=== PATIENT | male | born 1935 | race Caucasian/White ===

== ENCOUNTER 2021-01-21 14:59 | Inpatient (IN) | payer MEDICARE, MEDICAID ==
[~2021-01-21] VITALS: Ht 167.6 cm; Wt 48.1 kg
[2021-01-21] MEDS ORDERED: DILTIAZEM HCL 5MG/ML 5ML VIAL IV ONE (15:15)
[2021-01-21 15:36] LABS: BASOPHILS % 0.4 % (0.0-2.0); EOSINOPHILS % 0.1 % (0.0-5.0); HEMATOCRIT. 44.4 % (42.0-52.0); HEMOGLOBIN. 14.5 g/dL (14.0-18.0); MEAN CORPUSCULAR VOLUME 91.6 fL (80.0-94.0); MEAN PLATELET VOLUME 9.5 fl (7.4-10.4); MONOCYTES % 9.2 % (2.0-8.0); NEUTROPHILS % 78.3 % (40.0-76.0); PLATELET 234 x1000/uL (130-400); RED BLOOD CELL COUNT 4.85 mill/uL (4.7-6.1); RED CELL DISTRIBUTION WIDTH 15.8 % (11.6-14.6)
[2021-01-21 15:44] LABS: CHLORIDE 115 mEq/L (98-107)
[2021-01-21 15:45] LABS: INR 1.3; PROTHROMBIN TIME 13.9 sec (9.6-11.0)
[2021-01-21] MEDS ORDERED: DEXTROSE 50% WATER 50ML SYRINGE IV ONE (16:15)
[2021-01-21] MEDS ORDERED: INSULIN REGULAR (HUMULIN R) 300UNITS/3ML VIAL IV ONE (16:15)
[2021-01-21] MEDS ORDERED: ONDANSETRON HCL 4MG/2ML INJ IV ONE (16:45)
[2021-01-21] MEDS: FUROSEMIDE 40MG/4ML VIAL IVP ONE ×2 (16:45→16:56)
[2021-01-21] MEDS ORDERED: ONDANSETRON HCL 4MG/2ML INJ IV PRN (20:45)
[2021-01-21] MEDS ORDERED: ACETAMINOPHEN 325MG TABLET PO PRN ×2 (20:45)
[2021-01-21] MEDS ORDERED: GUAIFENESIN 200MG/10ML SUGAR FREE UDC PO PRN (20:45)
[2021-01-21] MEDS ORDERED: DIPHENHYDRAMINE 50MG/ML VIAL IV PRN (20:45)
[2021-01-21] MEDS ORDERED: ZOLPIDEM TARTRATE 5MG TABLET PO PRN (20:45)
[2021-01-21] MEDS ORDERED: DIGOXIN 500MCG/2ML AMP IV NR (22:00)
[2021-01-21] MEDS: SODIUM CHLORIDE 0.9% INJ 3ML FLUSH IVF SCH (22:26)
[2021-01-22] MEDS ORDERED: DILTIAZEM HCL 5MG/ML 5ML VIAL IV NR (00:45)
[2021-01-22 04:55] VITALS: BP 137/77
[2021-01-22] MEDS: DILTIAZEM HCL 30MG TABLET PO SCH ×2 (06:00→06:08)
[2021-01-22] MEDS: SODIUM CHLORIDE 0.9% INJ 3ML FLUSH IVF SCH ×3 (06:08→21:54)
[2021-01-22] MEDS ORDERED: MULT-1116 MT (06:21)
[2021-01-22] MEDS ORDERED: CLON0.1T PO (06:21)
[2021-01-22] MEDS ORDERED: ZOLP5TAB2 MT (06:21)
[2021-01-22] MEDS ORDERED: MOM MT (06:21)
[2021-01-22] MEDS ORDERED: BISA10SU62 RC (06:21)
[2021-01-22] MEDS ORDERED: DOCU100T MT (06:21)
[2021-01-22] MEDS ORDERED: TRAM50TA94 MT (06:21)
[2021-01-22] MEDS ORDERED: MYL30 PO (06:21)
[2021-01-22] MEDS ORDERED: DILT30TA38 MT (06:21)
[2021-01-22] MEDS ORDERED: FAMO-135 MT (06:21)
[2021-01-22] MEDS ORDERED: KETO10TA2 PO (06:21)
[2021-01-22] MEDS ORDERED: ONDA4TAB5 PO (06:21)
[2021-01-22] MEDS ORDERED: NA P230E RC (06:21)
[2021-01-22] MEDS ORDERED: TOPUD PO (06:21)
[2021-01-22] MEDS ORDERED: APIX2.5T MT (06:21)
[2021-01-22] MEDS ORDERED: IPRA3AMP31 IH (06:21)
[2021-01-22] MEDS ORDERED: GUAI-996 MT (06:21)
[2021-01-22 08:00] VITALS: BP 123/80
[2021-01-22] MEDS: FUROSEMIDE 40MG/4ML VIAL IVP SCH (09:57)
[2021-01-22] MEDS: APIXABAN 2.5 MG TABLET PO SCH ×2 (09:57→17:11)
[2021-01-22] MEDS: DILTIAZEM HCL 60MG TABLET PO SCH ×3 (10:51→20:56)
[2021-01-22 12:00] VITALS: BP 117/55
[2021-01-22 15:46] LABS: BASOPHILS % 0.4 % (0.0-2.0); EOSINOPHILS % 1.8 % (0.0-5.0); HEMATOCRIT. 46.5 % (42.0-52.0); HEMOGLOBIN. 15.2 g/dL (14.0-18.0); LYMPHOCYTES % 10.1 % (20.0-50.0); MEAN CORPUSCULAR HEMOGLOBIN 30.4 pg (28.0-32.0); MEAN CORPUSCULAR VOLUME 93.1 fL (80.0-94.0); MEAN PLATELET VOLUME 9.2 fl (7.4-10.4); MONOCYTES % 9.5 % (2.0-8.0); NEUTROPHILS % 78.2 % (40.0-76.0); PLATELET 191 x1000/uL (130-400); RED BLOOD CELL COUNT 4.99 mill/uL (4.7-6.1); RED CELL DISTRIBUTION WIDTH 16.3 % (11.6-14.6)
[2021-01-22 16:00] VITALS: BP 120/79
[2021-01-22 16:07] LABS: PHOSPHORUS 4.5 mg/dL (2.5-4.9)
[2021-01-22 16:10] LABS: T4 FREE 1.23 ng/dL (0.76-1.46)
[2021-01-22] MEDS ORDERED: DIGOXIN 500MCG/2ML AMP IV SCH (18:00)
[2021-01-22 20:00] VITALS: BP 124/73
[2021-01-23] VITALS (8 sets, daily range): BP systolic 104–135; BP diastolic 68–88
[2021-01-23] MEDS: DILTIAZEM HCL 60MG TABLET PO SCH ×2 (06:00→06:19)
[2021-01-23] MEDS: SODIUM CHLORIDE 0.9% INJ 3ML FLUSH IVF SCH ×3 (06:19→22:16)
[2021-01-23 07:21] LABS: BASOPHILS % 0.4 % (0.0-2.0); EOSINOPHILS % 3.2 % (0.0-5.0); HEMATOCRIT. 45.7 % (42.0-52.0); HEMOGLOBIN. 15.2 g/dL (14.0-18.0); LYMPHOCYTES % 12.6 % (20.0-50.0); MEAN CORPUSCULAR HEMOGLOBIN 30.4 pg (28.0-32.0); MEAN CORPUSCULAR VOLUME 91.3 fL (80.0-94.0); MEAN PLATELET VOLUME 9.4 fl (7.4-10.4); MONOCYTES % 9.3 % (2.0-8.0); NEUTROPHILS % 74.5 % (40.0-76.0); PLATELET 213 x1000/uL (130-400); RED CELL DISTRIBUTION WIDTH 15.7 % (11.6-14.6)
[2021-01-23] MEDS: APIXABAN 2.5 MG TABLET PO SCH ×2 (10:14→16:45)
[2021-01-23] MEDS: FUROSEMIDE 40MG/4ML VIAL IVP SCH (10:14)
[2021-01-23] MEDS: DILTIAZEM HCL 90MG TABLET PO SCH ×3 (14:17→18:46)
[2021-01-23] MEDS ORDERED: DIGOXIN 500MCG/2ML AMP IV SCH (18:00)
[2021-01-24] VITALS: BP 119/50
[2021-01-24] MEDS: DILTIAZEM HCL 90MG TABLET PO SCH ×4 (00:19→22:16)
[2021-01-24 04:00] VITALS: BP 94/63
[2021-01-24] MEDS: SODIUM CHLORIDE 0.9% INJ 3ML FLUSH IVF SCH ×3 (06:22→22:17)
[2021-01-24 06:49] LABS: BASOPHILS % 0.3 % (0.0-2.0); EOSINOPHILS % 3.1 % (0.0-5.0); HEMATOCRIT. 45.3 % (42.0-52.0); HEMOGLOBIN. 15.3 g/dL (14.0-18.0); LYMPHOCYTES % 9.1 % (20.0-50.0); MEAN CORPUSCULAR HEMOGLOBIN 30.8 pg (28.0-32.0); MEAN CORPUSCULAR VOLUME 91.1 fL (80.0-94.0); MEAN PLATELET VOLUME 9.2 fl (7.4-10.4); NEUTROPHILS % 77.5 % (40.0-76.0); PLATELET 205 x1000/uL (130-400); RED BLOOD CELL COUNT 4.97 mill/uL (4.7-6.1); RED CELL DISTRIBUTION WIDTH 15.4 % (11.6-14.6)
[2021-01-24 08:00] VITALS: BP 112/63
[2021-01-24] MEDS: APIXABAN 2.5 MG TABLET PO SCH ×2 (08:45→17:39)
[2021-01-24 12:00] VITALS: BP 104/50
[2021-01-24 16:00] VITALS: BP 106/60
[2021-01-24 20:00] VITALS: BP 110/67
[2021-01-25] VITALS: BP 118/52
[2021-01-25 04:00] VITALS: BP 98/53
[2021-01-25] MEDS: SODIUM CHLORIDE 0.9% INJ 3ML FLUSH IVF SCH ×2 (06:08→15:08)
[2021-01-25] MEDS: DILTIAZEM HCL 90MG TABLET PO SCH (06:09)
[2021-01-25 08:00] VITALS: BP 106/56
[2021-01-25] MEDS: APIXABAN 2.5 MG TABLET PO SCH ×2 (09:06→17:43)
[2021-01-25 12:00] VITALS: BP 108/40
[2021-01-25] MEDS: DILTIAZEM HCL 30MG TABLET PO SCH ×2 (12:00→17:17)
[2021-01-25 16:00] VITALS: BP 105/57
[2021-01-25 17:55] VITALS: BP 105/57
[2021-01-25] MEDS ORDERED: CARVEDILOL 3.125 MG TABLET PO SCH (21:00)
== END 2021-01-25 21:08 | DRG 291 ==
LOC: ER 14:59 → EDBEDREQ 19:39 → MICUSO 01-22 00:39 → 6WST 01-22 03:59
PROVIDERS: ADMIT Internal Medicine; ATTEND Internal Medicine
DX: I13.0 Hypertensive heart and chronic kidney disease with heart failure and stage 1 through stage 4 chronic kidney disease, or unspecified chronic kidney disease (principal); J96.01 Acute respiratory failure with hypoxia; I50.23 Acute on chronic systolic (congestive) heart failure; I48.19 Other persistent atrial fibrillation; E46 Unspecified protein-calorie malnutrition; Z68.1 Body mass index [BMI] 19.9 or less, adult; D68.59 Other primary thrombophilia; E87.5 Hyperkalemia; N18.9 Chronic kidney disease, unspecified; I34.0 Nonrheumatic mitral (valve) insufficiency; I42.9 Cardiomyopathy, unspecified; Z20.822 Contact with and (suspected) exposure to COVID-19; Z79.01 Long term (current) use of anticoagulants
CPT/HCPCS: 36415; 71045; 80048; 80053; 83735; 83880; 84100; 84439; 84443; 84484; 85025; 87426; 93005; 93306; 99291; J1160; J1815; J1940; J2405; J3490